=== PATIENT | male | born 1970 | race Caucasian/White ===

== ENCOUNTER 2016-11-09 09:48 | Emergency (ER) | payer OTHER ==
[~2016-11-09] VITALS: Ht 177.8 cm; Wt 87.0 kg
[~2016-11-09 09:48] MED LIST: multivitamin PO
[2016-11-09 09:54] VITALS: BP 132/80
[2016-11-09] MEDS ORDERED: KETOROLAC 30 MG/1 ML ONE (10:28)
[2016-11-09] MEDS ORDERED: KETOROLAC 30 MG/1 ML IM ONE (10:30)
== END 2016-11-09 11:15 | disposition home or self-care (01) ==
LOC: ED 11:05
DX: S29.011A Strain of muscle and tendon of front wall of thorax, initial encounter (principal); X58.XXXA Exposure to other specified factors, initial encounter; Y93.89 Activity, other specified; Y92.89 Other specified places as the place of occurrence of the external cause; Y99.8 Other external cause status
CPT/HCPCS: 71101; 96372; 99284; J1885